=== PATIENT | female | born 1990 | race Caucasian/White ===

== ENCOUNTER 2025-07-09 00:12 | Emergency (ER) | payer OTHER, SELFPAY ==
[2025-07-09 00:22] VITALS: BP 142/89
[2025-07-09 00:57] LABS: Hematocrit 40.2 % (37.0-47.0); Hemoglobin 14.3 g/dL (12.0-16.0); Mean Corp Hgb Conc. 35.6 g/dL (33.0-37.0); Mean Corpuscular Volume 90.3 fL (81.0-99.0); Nucleated Red Blood Cells % 0 %; Platelet Count 328 10^3/uL (130-400); Red Cell Dist. Width 11.7 % (11.5-14.5)
[2025-07-09 01:11] LABS: HCG, Serum Qualitative Screen Negative
[2025-07-09 01:13] LABS: ALT (SGPT) 15 U/L (0-35); AST (SGOT) 20 U/L (14-36); Albumin 4.8 g/dl (3.5-5.0); Alkaline Phosphatase 59 U/L (38-126); Blood Urea Nitrogen 14 mg/dl (7-17); Calcium 9.1 mg/dl (8.4-10.2); Carbon Dioxide 26 mmol/L (22-30); Chloride 106 mmol/L (98-107); Glucose 111 mg/dl (70-99); Potassium 3.5 mmol/L (3.5-5.1); Sodium 141 mmol/L (135-145); Total Protein 7.8 g/dl (6.3-8.2); eGFR > 60.00
[2025-07-09] MEDS: VALIUM INJECTION 2 MG IV (03:21)
[2025-07-09] MEDS: NSS 1000 IV (03:21)
--- NOTE | 2025-07-09 04:40 | ED.GENMED ---
History of Present Illness
General
Chief Complaint: Musculo-Skeletal Complaint
Source: patient
Exam Limitations: none
Time Seen by Provider: 07/09/25 02:32
Nursing documentation reviewed up to this point in time: agreed with
History of Present Illness
History of Present Illness:
Patient presents to ED secondary to intermittent spasming sensation of both hands and feet over the past 1 year. In addition, patient also reported intermittent sensation of back spasm as well, not always correlating with hand and feet spasm
sensation. Patient admittedly has not seen any physician for a long period of time for exam. There is family history of multiple sclerosis, which patient is concerned about. Denies fever. Denies headache. Denies neck pain. Denies weakness or
loss of sensation. Patient states that spasming sensation would come daily, but lasting seconds to minutes, with spontaneous resolution. Denies any change in diet. Denies recent illness.
Review of Systems
Review of Systems
Allergies reviewed?: Yes
All Other Systems: ROS reviewed and negative except as documented in HPI and ROS
Constitutional: Reports no symptoms
EENT: Reports no symptoms
Respiratory: Reports no symptoms
Cardiac: Reports no symptoms
ABD/GI: Reports no symptoms
Musculoskeletal: Reports other (Muscle spasm)
Neurological: Reports no symptoms; Denies headache, weakness or numbness
Phy Exam
Physical Exam
Physical Exam:
Physical Exam
General: no apparent distress, not acutely ill.
Neck: supple. no meningeal signs. normal psoterior pharynx
Heart: s1/s2 regular rate and rhythm, no murmur. equal radial pulses.
Lungs: no acute respiratory distress. clear bilaterally
Abdomen: normal bowel sounds. not tender. no CVAT
Neuro: alert and oriented. no focal neurological deficits
Skin: no rash
Psychiatric: well kept. interactive and cooperative
Extremities: no edema. no calf tenderness. negative homans.
Course
Orders/Labs/Results
Orders:
Orders
07/09/25 00:28
ECG [Electrocardiogram (*1)] Urgent
Reason for Study: Other
Other Reason for Exam: muscle twitching
Cardiology Consult: Unknown
EKG- Treatment ONCE
Test Result ONCE
07/09/25 00:51
Complete Blood Count/With Diff Urgent
Comprehensive Metabolic Panel Urgent
Creatine Phosphokinase Urgent
Comment: ADDED
HCG, Serum Qualitative Screen Urgent
07/09/25 01:34
Add On- LAB Urgent
Tests Added?: CK
07/09/25 03:12
0.9% Sodium Chloride 1000 ml [Nss] 1,000 ml IV BOLUS
diazePAM [Valium Injection] 2 mg IV NOW STA
07/09/25 03:13
CT Head W/o Iv Contrast Urgent
Comment:
Reason For Exam: muscle spasm
07/09/25 05:13
Ehrlichia/Anaplasma by PCR [S] Urgent
Vitamin B1, Whole Blood [S] Urgent
07/09/25 05:14
Lyme Progressive Urgent
Vitamin B12 Urgent
Vitamin B9 [Folate] Urgent
Abnormal Lab Results
07/09/25
00:51
MCH 32.1 H pg
(27.0-31.0)
Glucose 111 H mg/dl
(70-99)
07/09/25 00:51
07/09/25 00:51
Vital Signs
Initial and Last Documented VS:
Initial Vital Signs
Temp Pulse Resp BP Pulse Ox
98.3 F 130 20 142/89 98
07/09/25 00:22 07/09/25 00:22 07/09/25 00:22 07/09/25 00:22 07/09/25 00:22
Last Documented Vital Signs
Temp Pulse Resp BP Pulse Ox
98.3 F 102 18 113/87 98
07/09/25 00:22 07/09/25 05:32 07/09/25 05:32 07/09/25 05:32 07/09/25 05:32
MDM/Problems Addressed
MDM/Problems Addressed:
Patient with an unremarkable workup in ED, including CT head. Patient otherwise remains afebrile, hemodynamically stable, and neurologically intact, during observation.
Lyme titer as well as other tickborne illness test pending. Vitamin levels pending. Patient will be referred to PCP/neurology for outpatient consultation, with return precautions provided. Patient expresses understanding, at time of discharge, to
the care of her family.
*Pulse Oximetry
SaO2: 98
Oxygen Mode of Delivery: Room air
Patient hypoxic: no
*Critical Care Note
Total Time (30-74mins, 75-104mins- exclusive of procedures): Not Applicable
ED Attending Note
-
Portions of this chart may have been created with voice recognition software.� Occasional wrong word or��sound alike� substitutions may have occurred due to the inherent limitations of voice recognition software.
Discharge Plan
Departure
Patient Disposition: Home (Routine Discharge)
Date of Disposition: 07/09/25
Time of Disposition: 05:03
Patient with high blood pressure during this ER visit?: Yes
Condition: Fair
Discharge Problem:
Paresthesia
Instructions: Peripheral neuropathy
Prescriptions:
No Action
No Current Medications
0
Referrals:
[facility] [Outside]
Adrian Weaver MD [Active, Neurology]
Activity Restrictions/Additional Instructions:
As discussed, please follow-up with referred [facility] medical clinic and/or referred neurologist for continual evaluation and treatment.
Interventions
Interventions:
*Risk Screen - Suicide Last Done: 07/09/25 00:22
*General Assessment Last Done: 07/09/25 00:22
*Neglect/Abuse Screening Last Done: 07/09/25 00:22
*ED- Fall Risk Assessment Last Done: 07/09/25 00:22
*ED COVID-19 Vaccine History Last Done: 07/09/25 00:22
*ED Influenza Vaccine History Last Done: 07/09/25 00:22
*Nursing Disposition Last Done: 07/09/25 05:32
ED-Musculoskeletal Assessment Last Done: 07/09/25 02:29
Discharge Date and Time
Discharge Date/Time: 07/09/25 05:33
Print Language: TELUGU
[2025-07-09 05:28] VITALS: BP 113/87
[2025-07-09 05:32] VITALS: BP 113/87
[2025-07-09 06:55] LABS: Folate 6.2 ng/ml (2.76-20); Vitamin B12 258 pg/ml (239-931)
[2025-07-12 16:09] LABS: Lyme Antibody Screen, EIA Negative (Negative)
[2025-07-13 07:47] LABS: Vitamin B1, Whole Blood 126 nmol/L (70-180)
== END 2025-07-09 05:33 | disposition home or self-care (01) ==
LOC: EMR 00:12
PROVIDERS: Student in an Organized Health Care Education/Training Program; EMERGENCY PHYSICIAN Emergency Medicine
DX: R20.2 Paresthesia of skin (principal); R03.0 Elevated blood-pressure reading, without diagnosis of hypertension
CPT/HCPCS: 99284; 96374; 96361; 70450; 80053; 82550; 82607; 82746; 84425; 84703; 85025; 86618; 87468; 87484; 87798; 93005